=== PATIENT | female | born 2000 | race African-American/Black ===

== ENCOUNTER 2021-02-14 00:22 | Observation (INO) | payer OTHER ==
[~2021-02-14] VITALS: Ht 157.5 cm; Wt 65.3 kg
[2021-02-14] MEDS ORDERED: PNV91TAB8 PO (00:46)
== END 2021-02-14 02:00 | disposition home or self-care (01) ==
LOC: MLD 00:22
PROVIDERS: ADMIT Obstetrics & Gynecology; ATTEND Obstetrics & Gynecology
DX: O62.9 Abnormality of forces of labor, unspecified (principal); Z3A.39 39 weeks gestation of pregnancy
CPT/HCPCS: 59025; 81000; G0378

== ENCOUNTER 2021-02-16 16:57 | Inpatient (IN) | payer OTHER, SELFPAY ==
[~2021-02-16] VITALS: Ht 160 cm; Wt 66.2 kg
[~2021-02-16 16:57] MED LIST: PNV91TAB8 PO
[2021-02-16] MEDS ORDERED: LACTATED RINGERS 1,000 ML IV SCH (17:20)
[2021-02-16] MEDS ORDERED: AMPICILLIN 2,000 MG in NACL 0.9% MINI-BAG PLUS 100 ML IV SCH (17:20)
[2021-02-16] MEDS ORDERED: LACTATED RINGERS 500 ML IV ONE (17:20)
[2021-02-16 17:53] LABS: BASOPHILS % (AUTO) 0.4 % (0.0-2.0); EOSINOPHILS % (AUTO) 0.1 % (0.0-4.0); HEMATOCRIT 34.3 % (36-48); HEMOGLOBIN 11.2 g/dL (12.0-16.0); LYMPHOCYTES % (AUTO) 20.2 % (20.5-51.1); MEAN CORPUSCULAR HEMOGLOBIN 30 pg (27-31); MEAN CORPUSCULAR HGB CONC 33 g/dL (33-37); MEAN CORPUSCULAR VOLUME 92.5 fL (80-94); MONOCYTES # (AUTO) 0.9 K/uL (0.8-1.0); MONOCYTES % (AUTO) 9.2 % (1.7-9.3); NEUTROPHILS # (AUTO) 6.9 K/uL (1.8-7.7); NEUTROPHILS % (AUTO) 70.1 % (42.2-75.2); PLATELET COUNT (AUTO) 218 K/uL (140-450); RED BLOOD CELL COUNT(AUTO) 3.71 MIL/uL (4.20-5.40); WHITE BLOOD COUNT (AUTO) 9.9 K/uL (4.8-10.8)
[2021-02-16] MEDS ORDERED: AMPICILLIN 2,000 MG VIAL ONE (17:53)
[2021-02-16 17:54] LABS: BILIRUBIN,URINE NEGATIVE (NEGATIVE); BLOOD, URINE NEGATIVE (NEGATIVE); COLOR,URINE YELLOW (YELLOW); LEUKOCYTE ESTERASE ,URINE 1+ (NEGATIVE); NITRITE, URINE NEGATIVE (NEGATIVE); UGLUCOSE NEGATIVE (NEGATIVE)
[2021-02-16 18:09] LABS: APPEARANCE,URINE HAZY (CLEAR)
[2021-02-16 18:22] LABS: RBC,URINE NONE SEEN /HPF (0-5); WBC,URINE 0-5 /HPF (0-5)
[2021-02-16 18:25] LABS: ALBUMIN 2.8 g/dL (3.4-5.0); ANION GAP 11.7 (8-16); CARBON DIOXIDE 24.3 mmol/L (21-32); CREATININE 0.7 mg/dL (0.6-1.3); TOTAL BILIRUBIN 0.2 mg/dL (0.0-1.0)
[2021-02-16 19:09] VITALS: BP 114/54
[2021-02-16] MEDS ORDERED: OXYTOCIN 20 UNITS in LACTATED RINGERS 1,000 ML IV SCH (20:00)
[2021-02-16] MEDS ORDERED: MISOPROSTOL 25 MCG TAB VG SCH (20:00)
[2021-02-16] MEDS ORDERED: AMPICILLIN 1,000 MG in NACL 0.9% MINI-BAG PLUS 50 ML IV SCH (20:00)
[2021-02-16] MEDS ORDERED: AMPICILLIN 1,000 MG VIAL ONE (22:41)
[2021-02-16] MEDS: PROMETHAZINE 25 MG/ML VIAL IVP PRN (22:57)
[2021-02-16] MEDS: NALBUPHINE 10 MG/ML AMP IVP PRN (22:57)
[2021-02-17] MEDS: PROMETHAZINE 25 MG/ML VIAL IVP PRN (00:44)
[2021-02-17] MEDS: NALBUPHINE 10 MG/ML AMP IVP PRN (00:45)
[2021-02-17] MEDS ORDERED: ROPIVACAINE 0.2%/NS PREMIX 200 ML EPI ONE (02:47)
[2021-02-17] MEDS ORDERED: OXYTOCIN 20 UNITS/LR PREMIX 1,000 ML IV ONE (03:30)
[2021-02-17] MEDS ORDERED: IBUPROFEN 800 MG TAB PO PRN (04:05)
[2021-02-17] MEDS ORDERED: TEMAZEPAM 15 MG CAP PO PRN (04:05)
[2021-02-17] MEDS ORDERED: OXYTOCIN 10 UNITS/ML VIAL IM PRN (04:05)
[2021-02-17] MEDS ORDERED: BENZOCAINE/MENTHOL 20%-0.5% 60 GM CAN TP PRN (04:05)
[2021-02-17] MEDS ORDERED: METHYLERGONOVINE 0.2 MG/ML AMP IM PRN (04:05)
[2021-02-17] MEDS ORDERED: METHYLERGONOVINE 0.2 MG TAB PO PRN (04:05)
[2021-02-17] MEDS ORDERED: oxyCODONE/APAP 5/325 MG 1 TAB TAB PO PRN (04:05)
[2021-02-17] MEDS ORDERED: AMPICILLIN 1,000 MG VIAL ONE (04:29)
--- NOTE | 2021-02-17 08:31 | NUR ---
PATIENT HAS BEEN SCREENED AND CATEGORIZED LOW NUTRITION RISK. PATIENT WILL BE SEEN WITHIN 7 DAYS OF ADMISSION. 02/23/[address]
[2021-02-17] MEDS ORDERED: DOCUSATE SOD/SENNA 50/8.6 MG 1 TAB PO SCH (21:00)
[2021-02-18] MEDS: HYDROcodone/APAP 5/325 MG 1 TAB TAB PO PRN ×2 (01:34→06:49)
[2021-02-18 05:29] LABS: HEMATOCRIT 33.9 % (36-48); HEMOGLOBIN 10.9 g/dL (12.0-16.0)
== END 2021-02-18 14:00 | disposition home or self-care (01) | DRG 560 ==
LOC: MFCC 16:57
PROVIDERS: ADMIT Obstetrics & Gynecology; ATTEND Obstetrics & Gynecology
PROC: 10D07Z6 Extraction of Products of Conception, Vacuum, Via Natural or Artificial Opening (ICD-10-PCS; principal; 2021-02-17)
PROC: 0HQ9XZZ Repair Perineum Skin, External Approach (ICD-10-PCS; 2021-02-17)
PROC: 10907ZC Drainage of Amniotic Fluid, Therapeutic from Products of Conception, Via Natural or Artificial Opening (ICD-10-PCS; 2021-02-17)
PROC: 3E0R3BZ Introduction of Anesthetic Agent into Spinal Canal, Percutaneous Approach (ICD-10-PCS; 2021-02-17)
PROC: 00HU33Z Insertion of Infusion Device into Spinal Canal, Percutaneous Approach (ICD-10-PCS; 2021-02-17)
DX: O70.0 First degree perineal laceration during delivery (principal); O99.824 Streptococcus B carrier state complicating childbirth; Z20.822 Contact with and (suspected) exposure to COVID-19; Z37.0 Single live birth; Z3A.39 39 weeks gestation of pregnancy
CPT/HCPCS: 36415; 59200; 59409; 80053; 81001; 85018; 85025; 86592; 86886; 86900; 86901; 87086; J0290; J2300; J2550; J2590; J2795; J7120

== ENCOUNTER 2023-09-10 15:26 | Observation (INO) | payer OTHER ==
[~2023-09-10] VITALS: Ht 157.5 cm; Wt 56.7 kg
[2023-09-10] MEDS ORDERED: MORPHINE SULFATE 4 MG/ML SYR IVP PRN (16:00)
[2023-09-10] MEDS ORDERED: ONDANSETRON 4 MG/2 ML VIAL IVP PRN (16:00)
[2023-09-10] MEDS ORDERED: cefTRIAXone 1,000 MG VIAL ONE (16:20)
[2023-09-10] MEDS: NACL 0.9% 1,000 ML IV SCH ×2 (16:38→20:26)
== END 2023-09-10 23:55 | disposition home or self-care (01) ==
LOC: MLD 15:26
PROVIDERS: ADMIT Obstetrics & Gynecology; ATTEND Obstetrics & Gynecology
DX: O26.892 Other specified pregnancy related conditions, second trimester (principal); R10.30 Lower abdominal pain, unspecified; Z3A.24 24 weeks gestation of pregnancy
CPT/HCPCS: 96361; 96365; 96375; G0378; J0696; J2270; J2405; J7030; J7060